=== PATIENT | female | born 1940 | race Two or more races ===

== ENCOUNTER 2024-09-17 15:55 | Inpatient (IN) | payer OTHER ==
[~2024-09-17] VITALS: Ht 152.4 cm; Wt 98.9 kg
[2024-09-17 16:33] LABS: PLATELET COUNT (AUTO) 168 K/uL (179-408); RED BLOOD CELL COUNT(AUTO) 4.34 MIL/uL (3.63-4.92); RED CELL DISTRIBUTION WIDTH 13.6 % (12.3-17.7); WHITE BLOOD COUNT (AUTO) 6.8 K/uL (3.8-11.8)
[2024-09-17] MEDS ORDERED: ONDANSETRON 4 MG/2 ML VIAL ONE (16:40)
[2024-09-17] MEDS: MORPHINE SULFATE 2 MG/1 ML DISP.SYRIN IV ONE (16:41)
[2024-09-17] MEDS ORDERED: MORPHINE SULFATE 4 MG/1 ML DISP.SYRIN ONE (16:41)
[2024-09-17] MEDS: ONDANSETRON 4 MG/2 ML VIAL IV ONE (16:41)
[2024-09-17 16:46] LABS: ASPARTATE AMINOTRANSFERASE 16 U/L (15-37); CREATININE 1.0 mg/dL (0.6-1.3); SODIUM SERUM 140 mmol/L (136-145); TOTAL PROTEIN, SERUM 6.9 g/dL (6.4-8.2); UREA NITROGEN, BLOOD 29 mg/dL (7-18)
[2024-09-17] MEDS ORDERED: IV NORMAL SALINE 250 ML IV ONE (17:40)
[2024-09-17] MEDS ORDERED: IOHEXOL 350 100 ML INFUS..BTL ONE (17:41)
[2024-09-17] MEDS ORDERED: SWABABLE VALVE TRANSFER SET EA MC ONE (17:41)
[2024-09-17] MEDS ORDERED: ALBUTEROL SULFATE 2.5 MG/3 ML NEBU ONE (18:54)
[2024-09-17] MEDS ORDERED: IPRATROPIUM BROMIDE 0.5 MG/2.5 ML NEBU ONE (18:55)
[2024-09-17 19:00] VITALS: O2SAT 96
[2024-09-17 19:13] VITALS: O2SAT 98
[2024-09-17 19:15] VITALS: O2SAT 98
[2024-09-17] MEDS: ALBUTEROL SULFATE 2.5 MG/3 ML NEBU NEB ONE (19:16)
[2024-09-17] MEDS: IPRATROPIUM BROMIDE 0.5 MG/2.5 ML NEBU NEB ONE (19:16)
[2024-09-17 22:00] VITALS: O2SAT 98
[2024-09-17] MEDS ORDERED: ALBUTEROL SULFATE 2.5 MG/ 0.5 ML NEBU NEB PRN (22:30)
[2024-09-17] MEDS ORDERED: MORPHINE SULFATE 2 MG/1 ML DISP.SYRIN IV PRN (22:30)
[2024-09-17] MEDS ORDERED: MAGNESIUM HYDROXIDE 30 ML LIQUID UDC PO PRN (22:30)
[2024-09-17] MEDS ORDERED: ACETAMINOPHEN 325 MG TABLET PO PRN (22:30)
[2024-09-17] MEDS ORDERED: ONDANSETRON 4 MG/2 ML VIAL IV PRN (22:30)
[2024-09-17] MEDS ORDERED: DEXTROSE 50% 50 ML DISP.SYRIN IV PRN (22:45)
[2024-09-17] MEDS: BLOOD SUGAR DIAGNOSTIC 1 EACH STRIP VI SCH (23:43)
[2024-09-17] MEDS: INSULIN REGULAR, HUMAN 300 UNITS/3 ML VIAL SQ PRN (23:44)
[2024-09-18] VITALS (7 sets, daily range): BP systolic 114–127; BP diastolic 46–51; TEMP 97.6–98.4; O2SAT 90–98
[2024-09-18] MEDS: PANTOPRAZOLE SODIUM 40 MG TABLET.DR PO SCH (06:18)
[2024-09-18 06:37] LABS: PLATELET COUNT (AUTO) 155 K/uL (179-408); RED BLOOD CELL COUNT(AUTO) 4.26 MIL/uL (3.63-4.92); RED CELL DISTRIBUTION WIDTH 13.3 % (12.3-17.7); WHITE BLOOD COUNT (AUTO) 7.1 K/uL (3.8-11.8)
[2024-09-18 06:55] LABS: ASPARTATE AMINOTRANSFERASE 15 U/L (15-37); CREATININE 0.7 mg/dL (0.6-1.3); SODIUM SERUM 140 mmol/L (136-145); TOTAL PROTEIN, SERUM 6.8 g/dL (6.4-8.2); UREA NITROGEN, BLOOD 26 mg/dL (7-18)
[2024-09-18] MEDS: ASPIRIN EC 81 MG TABLET.DR PO SCH (09:25)
[2024-09-18] MEDS: FUROSEMIDE 40 MG/4 ML VIAL IV SCH (09:25)
[2024-09-18] MEDS: ENOXAPARIN SODIUM 40 MG/0.4 ML DISP.SYRIN SQ SCH (09:26)
[2024-09-18] MEDS: INSULIN REGULAR, HUMAN 1000 UNIT/10 ML VIAL SQ PRN (09:27)
[2024-09-18] MEDS ORDERED: ONDA4VIA23 IV (13:06)
[2024-09-18] MEDS ORDERED: FURO10VI IV (13:06)
[2024-09-18] MEDS ORDERED: Morphine Sulfate Inj IV (13:06)
[2024-09-18] MEDS ORDERED: ALBU2.5V13 NEB (13:06)
[2024-09-18] MEDS ORDERED: DEXT50DI8 IV (13:06)
[2024-09-18] MEDS ORDERED: INSU100V28 SQ ×2 (13:06)
[2024-09-18] MEDS ORDERED: ENOX40DI SQ (13:06)
[2024-09-18] MEDS ORDERED: ACET325T53 PO (13:06)
[2024-09-18] MEDS ORDERED: Blood Sugar Diagnostic VI (13:06)
[2024-09-18] MEDS ORDERED: MAGN400O6 PO (13:06)
[2024-09-18] MEDS ORDERED: ASPI-618 PO (13:06)
[2024-09-18] MEDS ORDERED: PANT40TA49 PO (13:06)
[2024-09-18] MEDS ORDERED: DOCU-141 PO (13:06)
[2024-09-18] MEDS: DOCUSATE SODIUM 100 MG CAPSULE PO SCH (21:07)
[2024-09-19 00:31] VITALS: BP 137/52; TEMP 98.1; O2SAT 91
[2024-09-19 02:33] VITALS: O2SAT 97
[2024-09-19 04:29] VITALS: BP 120/59; TEMP 97.4; O2SAT 92
[2024-09-19 06:36] LABS: PLATELET COUNT (AUTO) 144 K/uL (179-408); RED BLOOD CELL COUNT(AUTO) 4.11 MIL/uL (3.63-4.92); RED CELL DISTRIBUTION WIDTH 13.2 % (12.3-17.7); WHITE BLOOD COUNT (AUTO) 7.6 K/uL (3.8-11.8)
[2024-09-19 06:49] LABS: CREATININE 0.7 mg/dL (0.6-1.3); SODIUM SERUM 142 mmol/L (136-145); UREA NITROGEN, BLOOD 23 mg/dL (7-18)
[2024-09-19 07:30] VITALS: BP 128/49; TEMP 97.7; O2SAT 96
[2024-09-19 11:12] VITALS: BP 128/59; TEMP 97.4; O2SAT 96
== END 2024-09-19 11:47 | disposition home or self-care (01) | DRG 280 ==
LOC: ER 16:00 → TELE-TD3 23:12 → TELE3 23:50
PROVIDERS: ADMIT Internal Medicine; ATTEND Nurse Practitioner Family
PROC: 05HD33Z Insertion of Infusion Device into Right Cephalic Vein, Percutaneous Approach (ICD-10-PCS; principal; 2024-09-17)
DX: I11.0 Hypertensive heart disease with heart failure (principal); I50.33 Acute on chronic diastolic (congestive) heart failure; I21.A1 Myocardial infarction type 2; J96.01 Acute respiratory failure with hypoxia; E44.1 Mild protein-calorie malnutrition; Z68.41 Body mass index [BMI] 40.0-44.9, adult; E66.9 Obesity, unspecified; I25.10 Atherosclerotic heart disease of native coronary artery without angina pectoris; Z95.2 Presence of prosthetic heart valve; E04.2 Nontoxic multinodular goiter; E11.42 Type 2 diabetes mellitus with diabetic polyneuropathy; Z79.4 Long term (current) use of insulin; Z88.0 Allergy status to penicillin; E78.5 Hyperlipidemia, unspecified; Z79.899 Other long term (current) drug therapy; K21.9 Gastro-esophageal reflux disease without esophagitis; M81.0 Age-related osteoporosis without current pathological fracture; I35.0 Nonrheumatic aortic (valve) stenosis
CPT/HCPCS: 36415; 71045; 71275; 83735; 84100; 84443; 84484; 85025; 85730; 93307; A4606; A4663; G0378; J1650; J1815; J1938; J2270; J2405; J3590; Q9967